=== PATIENT | female | born 1975 | race African-American/Black ===

== ENCOUNTER 2023-05-12 08:12 | Inpatient (IN) | payer MEDICARE, MEDICAID ==
[~2023-05-12] VITALS: Ht 157.5 cm; Wt 76.1 kg
[2023-05-12] VITALS (11 sets, daily range): BP systolic 135–175; BP diastolic 77–99; PULSE 63–101; RESP 15–29; TEMP 98.6–99.1; O2SAT 99–100
[2023-05-12 08:48] LABS: Urine Bacteria FEW /hpf (None Seen); Urine Blood Negative /uL (Negative); Urine Clarity Clear (Clear); Urine Color Yellow (Yellow); Urine Hyaline Cast FEW /lpf (0 - 2); Urine Mucus FEW (None Seen); Urine Protein, UAD 2+ (Negative); Urine Specific Gravity 1.028 (1.001-1.035); Urine WBC 2 /hpf (0 - 5); Urine pH 7.5 (5.0-8.0)
[2023-05-12] MEDS ORDERED: ONDANSETRON ODT 4 MG TAB PO ONE (09:00)
[2023-05-12 09:15] LABS: Basophils # (auto) 0 10 ^3/uL (0-0.2); Eosinophils # (auto) 0 10 ^3/uL (0-0.8); White Blood Cell 6.6 10^3/uL (4.4-10.8)
[2023-05-12] MEDS ORDERED: amLODIPine BESYLATE 5 MG TAB PO ONE (09:15)
[2023-05-12 09:16] LABS: Eosinophils % (auto) 0.3 % (0.0-7.0); Hemoglobin 7.1 g/dL (12.2-16.2); Lymphocytes # (auto) 0.6 10 ^3/uL (0.4-5.4); Mean Corpuscular Hemoglobin 20.1 pg (28.0-32.0); Mean Corpuscular Hgb Conc. 29.5 g/dL (32.0-36.0); Mean Corpuscular Volume 68.2 fL (80.0-100.0); Monocytes # (auto) 0.3 10 ^3/uL (0-1.3); Monocytes % (auto) 4.1 % (0.0-12.0); Neutrophils # (auto) 5.7 10 ^3/uL (1.6-8.6); Neutrophils % (auto) 86.6 % (37.0-80.0); Red Blood Cells 3.51 10^6/uL (4.0-5.20)
[2023-05-12 09:19] LABS: Red Cell Distribution Width 21.8 % (11.8-14.3)
[2023-05-12 09:20] LABS: Alanine Aminotransferase 15 U/L (7-40); Albumin 4.9 g/dL (3.2-4.8); Alkaline Phosphatase 49 U/L (46-116); Anion Gap 8.2 (5-15); Aspartate Aminotransferase 16 U/L (13-40); BUN/Creatinine Ratio 19.1 (10.0-20.0); Blood Urea Nitrogen 17 mg/dL (9-23); Calcium 9.6 mg/dL (8.5-10.1); Carbon Dioxide 23.8 mmol/L (20-30); Chloride 105 mmol/L (98-107); Glucose 122 mg/dL (74-106); Potassium 4.1 mmol/L (3.5-5.1); Sodium 137 mmol/L (136-145)
[2023-05-12 09:21] LABS: Total Protein 8.2 g/dL (5.7-8.2)
[2023-05-12 09:29] LABS: Ovalocytes FEW; Platelet Estimate Adequate; Stomatocytes Many
[2023-05-12] MEDS ORDERED: ACETAMINOPHEN 325 MG TAB PO PRN (11:00)
[2023-05-12] MEDS ORDERED: SODIUM CHLORIDE 0.9% 1,000 ML IV SCH (11:00)
[2023-05-12] MEDS ORDERED: ONDANSETRON HCL 4 MG/2 ML VIAL IV PRN (11:00)
[2023-05-12] MEDS ORDERED: AMLO1TAB23 PO (11:10)
[2023-05-12] MEDS ORDERED: TRIO1TP TOP (11:10)
[2023-05-12] MEDS ORDERED: HYDR50TA69 PO (11:10)
[2023-05-12] MEDS ORDERED: GABA-1250 PO (11:10)
[2023-05-12] MEDS ORDERED: CHLO25TA2 PO (11:10)
[2023-05-12] MEDS ORDERED: METF-370 PO (11:10)
[2023-05-12] MEDS ORDERED: MONT-8 PO (11:10)
[2023-05-12] MEDS ORDERED: FLUT1AER3 INH (11:10)
[2023-05-12] MEDS ORDERED: DOCU-265 PO (11:10)
[2023-05-12] MEDS ORDERED: ALBU0.084 NEB (11:10)
[2023-05-12] MEDS ORDERED: ALBUTEROL SULF 2.5 MG/0.5ML(0.5%) NEB SOLN NEB PRN (11:15)
[2023-05-12] MEDS ORDERED: ACCU-CHEK COMFORT CURVE STRIP VI SCH ×3 (11:45→17:00)
[2023-05-12] MEDS ORDERED: DEXTROSE (50%) 50ML SYRG IV PRN ×2 (11:45)
[2023-05-12 11:58] LABS: Platelet Estimate Adequate
[2023-05-12 11:59] LABS: Anisocytosis Slight; Hypochromia Moderate
[2023-05-12 12:02] LABS: Stomatocytes Moderate; Tear Drop Cells FEW
[2023-05-12 12:02] LABS: % Iron Saturation 3.8 % (15-50)
[2023-05-12] MEDS ORDERED: GABAPENTIN 300 MG CAP PO SCH (14:00)
[2023-05-12] MEDS ORDERED: Chlorthalidone 25 MG TABLETS PO SCH (14:00)
[2023-05-12] MEDS ORDERED: DEXTROSE (50%) 50ML SYRG IV ONE (15:15)
[2023-05-12] MEDS ORDERED: hydrALAZINE HCL 20 MG/ML VL IV PRN (15:45)
[2023-05-12] MEDS ORDERED: HYDROcodone-ACET 5/325MG TAB PO PRN (17:00)
[2023-05-12] MEDS ORDERED: InsuLIN REG 1unit/0.01ml Soln (100units/ml) SC SCH ×2 (17:00)
[2023-05-12 19:42] LABS: Basophils # (auto) 0.1 10 ^3/uL (0-0.2); Eosinophils # (auto) 0.1 10 ^3/uL (0-0.8); Eosinophils % (auto) 0.7 % (0.0-7.0); Hematocrit 32.5 % (36.0-46.0); Lymphocytes % (auto) 19.5 % (10.0-50.0); Mean Corpuscular Hemoglobin 22.8 pg (28.0-32.0); Mean Corpuscular Hgb Conc. 30.9 g/dL (32.0-36.0); Mean Corpuscular Volume 73.8 fL (80.0-100.0); Monocytes # (auto) 0.5 10 ^3/uL (0-1.3); Monocytes % (auto) 5.3 % (0.0-12.0); Neutrophils # (auto) 7.5 10 ^3/uL (1.6-8.6); Neutrophils % (auto) 73.5 % (37.0-80.0); Nucleated Red Blood Cells % 0.2 %; Red Blood Cells 4.41 10^6/uL (4.0-5.20); White Blood Cell 10.2 10^3/uL (4.4-10.8)
[2023-05-12 19:44] LABS: Red Cell Distribution Width 23.5 % (11.8-14.3)
[2023-05-12] MEDS ORDERED: metFORMIN HYDROCHLORIDE 500 MG TAB PO SCH (22:00)
[2023-05-13] MEDS ORDERED: amLODIPine BESYLATE 5 MG TAB PO SCH (10:00)
[2023-05-13] MEDS ORDERED: DOCUSATE SOD 100 MG CAP PO SCH (10:00)
[2023-05-13 11:03] LABS: Folate (Folic Acid) 21.7 ng/mL (>5.38)
== END 2023-05-12 21:09 | disposition left against medical advice (07) | DRG 392 ==
LOC: ER 08:12 → OVERFLOW 11:07 → EAST 18:14
PROVIDERS: ADMIT Nurse Practitioner Family; ATTEND Nurse Practitioner Family
PROC: 30233N1 Transfusion of Nonautologous Red Blood Cells into Peripheral Vein, Percutaneous Approach (ICD-10-PCS; principal; 2023-05-12)
DX: K21.9 Gastro-esophageal reflux disease without esophagitis (principal); I31.39 Other pericardial effusion (noninflammatory); R10.9 Unspecified abdominal pain; D50.9 Iron deficiency anemia, unspecified; D25.9 Leiomyoma of uterus, unspecified; R11.2 Nausea with vomiting, unspecified; E11.9 Type 2 diabetes mellitus without complications; I10 Essential (primary) hypertension; J45.909 Unspecified asthma, uncomplicated; R91.1 Solitary pulmonary nodule; Z53.29 Procedure and treatment not carried out because of patient's decision for other reasons; Z90.711 Acquired absence of uterus with remaining cervical stump; Z98.51 Tubal ligation status
CPT/HCPCS: 36415; 74176; 76856; 80053; 81001; 82607; 82746; 82962; 83036; 83540; 83550; 83690; 83735; 84484; 85025; 85384; 86850; 86900; 86901; 86920; 93005; G0378; Q0162